=== PATIENT | female | born 1975 | race Caucasian/White ===

== ENCOUNTER 2016-11-24 17:48 | Emergency (ER) | payer MEDICARE ==
[2016-11-24 18:21] VITALS: O2SAT 100
--- NOTE | 2016-11-24 18:44 | ERPHSYRPT ---
- History of Present Illness Time Seen by Provider: 11/24/16 18:29 Source: patient, family Patient Subjective Stated Complaint: PT STATES SHE HAS ABD PAIN SINCE 11/22/16, REPORTS NAUSEA AND CRAMPING. STATES AFTER A BM TODAY SHE NOTICED SMALL WHITE WORMS ON THE TOILET TISSUE. Triage Nursing Assessment: PT IS AOX3, AMBULATORY TO COT WITH NO DIFFICULTIES, RESPS ARE EASY AND NON LABORED, SKIN IS PWD, ABD IS SOFT AND NONTENDER, BOWEL SOUNDS ARE PRESENT X4 AND HYPERACTIVE. Physician History: patient complains of pruritis of anus with small white worms in stool yesterday ; no prior hx; No N&V; no diarrhea Timing/Duration: yesterday Severity: mild Modifying Factors: Improves With: other (BM) Associated Symptoms: denies symptoms Allergies/Adverse Reactions: sulfamethoxazole [From Bactrim] Allergy (Verified 11/24/16 18:21) Hives trimethoprim [From Bactrim] Allergy (Verified 11/24/16 18:21) Hives Hx Tetanus, Diphtheria Vaccination/Date Given: No Hx Influenza Vaccination/Date Given: No Hx Pneumococcal Vaccination/Date Given: No Immunizations Up to Date: Yes - Review of Systems Constitutional: No Symptoms Eyes: No Symptoms Ears, Nose, & Throat: No Symptoms Respiratory: No Cough, No Dyspnea, No Wheezing Cardiac: No Chest Pain, No Edema, No Palpitations Abdominal/Gastrointestinal: Other (worms in stool), No Abdominal Pain, No Nausea , No Vomiting, No Diarrhea Genitourinary Symptoms: No Symptoms Musculoskeletal: No Symptoms Skin: No Symptoms Neurological: No Symptoms Psychological: No Symptoms - Past Medical History Pertinent Past Medical History: Yes ENT History: Cataracts - Past Surgical History Past Surgical History: Yes Female Surgical History: Tubal Ligation - Social History Smoking Status: Never smoker Exposure to second hand smoke: No Alcohol Use: None Drug Use: none Patient Lives Alone: No Significant Family History: no pertinent family hx - Female History Hx Last Menstrual Period: 10/22/16 - Nursing Vital Signs Nursing Vital Signs: Initial Vital Signs Temperature 99.0 F Temperature Source Oral Pulse Rate 60 Respiratory Rate 18 Blood Pressure [Left Arm] 141/82 Pain Intensity 9 - Physical Exam General Appearance: mild distress, alert, anxiety, thin Eye Exam: PERRL/EOMI, eyes nml inspection Ears, Nose, Throat Exam: normal ENT inspection, pharynx normal, moist mucous membranes Neck Exam: normal inspection, non-tender, supple, full range of motion Respiratory Exam: normal breath sounds, lungs clear, airway intact, No chest tenderness, No respiratory distress Cardiovascular Exam: regular rate/rhythm, normal heart sounds, normal peripheral pulses, capillary refill <2 sec, No murmur Gastrointestinal/Abdomen Exam: soft, normal bowel sounds, No tenderness, No distention, No guarding, No rebound, No organomegaly Pelvic Exam: deferred Rectal Exam: normal exam, normal rectal tone, hemorrhoids (tagf), other (pin worms), No mass, No black stool, No blood Back Exam: normal inspection, normal range of motion, No CVA tenderness Extremity Exam: normal inspection, normal range of motion, No yaritza's sign, No pedal edema Neurologic Exam: alert, oriented x 3, cooperative, logistics operations manager II-XII nml as tested Skin Exam: normal color, warm, dry, No rash SpO2 Interpretation: normal SpO2: 100 Oxygen Delivery: Room Air - Course Nursing assessment & vital signs reviewed: Yes - Progress Progress Note: 11/24/16 18:41 discussed findings, treatment plan; instructions given; Counseled pt/family regarding: diagnosis, need for follow-up - Departure Time of Disposition: 18:43 Departure Disposition: Home Clinical Impression: Worms in stool Condition: Stable Critical Care Time: No Additional Instructions: take meds as described; Albendazole 400 mg today and repeat x1 in two weeks Follow-up with family doctor as directed. Call for appointment. Return if any problems. If you smoke please stop. Call or follow up with your family doctor for assistance if you need it to stop. Please wear your seatbelt when driving. Have a nice day. Thank you for allowing us to participate in your care today. :o) Dr Miguel Angel Leavitt
[2016-11-24 18:55] VITALS: BP 140/80; PULSE 62
== END 2016-11-24 18:55 | disposition home or self-care (01) ==
LOC: ED 17:48
DX: B83.9 Helminthiasis, unspecified (principal)
CPT/HCPCS: 99283